=== PATIENT | male | born 1980 | race Caucasian/White ===

== ENCOUNTER → 2017-12-03 16:54 | Outpatient (CLI) | payer OTHER, SELFPAY ==
--- NOTE | 2017-12-03 16:56 | US_ITS ---
STUDY: SUPERFICIAL ULTRASOUND - LIMITED. REASON FOR EXAM: Male, 37 years old. Intermittent palpable abnormality left inguinal region. TECHNIQUE: A superficial ultrasound was performed with real-time and static bourgeois-scale imaging. COMPARISON: None. FINDINGS: Targeted ultrasound left inguinal region does not demonstrate a hernia with or without Valsalva. 2 lymph nodes are identified measuring 1.4 x 1.0 x 0.4 cm and 0.8 x 0.5 x 0.5 cm. US/Ext Non Vasc Limited/Soft Tiss IMPRESSION: No left inguinal hernia. Mildly enlarged left inguinal lymph node. If there is a high clinical suspicion of a left inguinal hernia consider correlation with CT. Electronically Signed: Epifanio Schulz MD at 2:37 EDT , Service support ,
== END ==
PROVIDERS: Family Provider Internal Medicine; PCP Internal Medicine; Referring Provider Internal Medicine; Visit Provider Internal Medicine
DX: R19.09 Other intra-abdominal and pelvic swelling, mass and lump (principal)
CPT/HCPCS: 76882

== ENCOUNTER → 2017-12-12 10:00 | Outpatient (CLI) | payer OTHER, SELFPAY ==
--- NOTE | 2017-12-12 10:00 | LIP_PTH ---
PATIENT: FRANSISCO ECHEVERRIA LOC: [facility] U#:[id number] AGE/SX: 44/M ROOM: RE12/12/[address]: Dr. Russel Mosher MD : 1980 BED: DIS: SPEC #: [id number] RECD: 12/12/17 10:25 STATUS: MARVIN SIRISHA #: [id number] GERMAN: 12/12/17 10:[address]: Russel Mosher DEPT: SURGICAL PATHOLOGY RECD BY: Yee Shah ENTERED: 12/12/17 12:06 SP TYPE: LIPOMA OTHR DR: Dr. Maciel Martinez MD Tissues: A - Soft tissues, NOS B - Soft tissues, NOS Procedures: Surgery Specimen Level III HEADER OPERATION: Excision of lipoma x2 on bilateral arms PRE-OP DIAGNOSIS: Lipomas TISSUE SUBMITTED: A - Right arm lipoma, B - Left arm lipoma MICROSCOPIC DIAGNOSIS A. Soft tissue lesion of right arm, excision: Mature adipose tissue consistent with lipoma. B. Soft tissue lesion of left arm, excision: Mature adipose tissue consistent with angiolipoma. AM:tameka 12/13/17 MICROSCOPIC DESCRIPTION Slides are reviewed. GROSS DESCRIPTION A - Received in fixative is one container labeled with the patient's name and designated right arm. The specimen consists of an irregular piece of adipose tissue measuring 1.5 x 0.8 x 0.4 cm. The external surface is inked. Sections reveal yellow adipose cut surfaces without areas of hemorrhage, necrosis or cystic degeneration. The specimen is bisected and submitted entirely in one cassette. B - Received in fixative is one container labeled with the patient's name and designated left arm. The specimen consists of an irregular piece of adipose tissue measuring 1.5 x 1 x 0.5 cm. The external surface is inked. Sections reveal yellow adipose cut surfaces without areas of hemorrhage, necrosis or cystic degeneration. The specimen is bisected and submitted entirely in one cassette. / SJ:tameka 12/12/17 TC:1 CPT: 76599 x2
== END ==
PROVIDERS: Family Provider Internal Medicine; PCP Internal Medicine; Referring Provider Surgery; Visit Provider Surgery
DX: D17.22 Benign lipomatous neoplasm of skin and subcutaneous tissue of left arm (principal); D17.21 Benign lipomatous neoplasm of skin and subcutaneous tissue of right arm
CPT/HCPCS: 88304

== ENCOUNTER → 2017-12-17 13:18 | Outpatient (CLI) | payer OTHER, SELFPAY ==
--- NOTE | 2017-12-17 13:19 | CT_ITS ---
STUDY: CT ABDOMEN AND PELVIS WITH CONTRAST REASON FOR EXAM: Male, 37 years old. Inguinal hernia RADIATION DOSAGE (If Supplied By Facility): CTDIvol = ( 15.26 ) mGy, DLP = ( 882.88 ) mGycm TECHNIQUE: Transaxial images were obtained from the dome of the diaphragm to the symphysis pubis without oral contrast. 100 ml of Isovue 300 contrast was administered. Sagittal and coronal images were reconstructed. Individualized dose optimization techniques were used for this CT. COMPARISON: Ultrasound dated 12/03/2017 FINDINGS: The visualized lung bases are clear. The visualized portions of the heart and pericardium are within normal limits. There are no calcified gallstones present. The liver is within normal limits. There are no suspicious hepatic lesions. The spleen is normal in size. The pancreas is within normal limits. The adrenal glands are within normal limits. There are no renal or ureteral stones. There is no hydronephrosis. There are no focal renal lesions. Normal visualized stomach. There is no bowel obstruction or inflammation. The appendix is visualized and appears normal. There is a small fat-containing left inguinal hernia. There is no bowel containing hernia. The aorta is normal in caliber. There is no abdominal or pelvic free air, free fluid, fluid collection or lymphadenopathy. There are no destructive osseous lesions. CT/Abdomen/Pelvis WITH Contrast IMPRESSION: Small fat-containing left inguinal hernia. No bowel containing hernia. No bowel obstruction or inflammation. Normal appendix. Electronically Signed: Fritz Hou, at 17:04 EST Tel , Service support ,
== END ==
PROVIDERS: Family Provider Internal Medicine; PCP Internal Medicine; Referring Provider Internal Medicine; Visit Provider Internal Medicine
DX: R10.30 Lower abdominal pain, unspecified (principal)
CPT/HCPCS: 74177; Q9967

== ENCOUNTER 2017-12-26 09:23 | Day surgery (SDC) | payer OTHER, SELFPAY ==
[2017-12-26 09:45] VITALS: BP 118/79; PULSE 63; RESP 16; TEMP 37.2; O2SAT 100; BMI 24.3
--- NOTE | 2017-12-26 11:00 | HERN_PTH ---
PATIENT: FRANSISCO ECHEVERRIA LOC: [facility] [place] U#:[id number] AGE/SX: 37/M ROOM: RE12/26/[address]: Dr. Russel Mosher MD : 1980 BED: DIS: 12/26/2017 SPEC #: [id number] RECD: 12/26/17 15:13 STATUS: MARVIN SIRISHA #: [id number] GERMAN: 12/26/17 11:[address]: Russel Mosher DEPT: SURGICAL PATHOLOGY RECD BY: Laverne Dick ENTERED: 12/26/17 15:30 SP TYPE: Hernia OTHR DR: Dr. Maciel Martinez MD Tissues: HERNIA Procedures: Surgery Specimen Level III HEADER OPERATION: Robotic left inguinal hernia repair PRE-OP DIAGNOSIS: Left inguinal hernia TISSUE SUBMITTED: Cord lipoma MICROSCOPIC DIAGNOSIS Cord lipoma: Mature adipose tissue, consistent with lipoma SJ:tameka 12/28/17 MICROSCOPIC DESCRIPTION Slides are reviewed. GROSS DESCRIPTION Received in fixative is one container labeled with the patient's name and designated cord lipoma. The specimen consists of multiple pieces of yellow adipose tissue that in aggregate measure 5.5 x 5 x 1 cm. No mass lesion is identified. Sections reveal walker-yellow adipose cut surfaces without area of hemorrhage, necrosis of cystic degeneration. Contracts Law Professor sections are submitted in one cassette. / SJ:rg 12/26/17 TC:1 CPT: 40654
[2017-12-26 12:27] VITALS: BP 118/79; BP 149/77; PULSE 83; RESP 16; TEMP 36.3; O2SAT 100
[2017-12-26 12:44] VITALS: BP 118/79; BP 145/71; PULSE 72; RESP 16; O2SAT 100
--- NOTE | 2017-12-26 12:46 | PCM.OPRPT ---
Problem List (1) Left inguinal hernia Status: Acute Report of Operation Date of Procedure: 12/26/17 Pre-Operative Diagnosis: Left inguinal hernia. Post-Operative Diagnosis: Same Surgery/Procedure Performed:: Robotic assisted laparoscopic left inguinal hernia repair with mesh Specimen's removed: Left inguinal lipoma Description of Procedure: The patient was brought back to the operating room and general anesthesia was induced. The abdomen was prepped and draped in usual sterile fashion. Incision was made just superior to the umbilicus and deepened to the fascia. A Veress needle was placed in the abdomen and the abdomen was insufflated to 15 mmHg after a successful drop test. Next the Veress needle was removed and a camera port was placed in the abdomen and the camera was placed in the abdomen and the abdomen was inspected for injuries upon entry and there were none. Next the inguinal canals were inspected. The right inguinal canal appeared normal with no hernia. The left had an indirect hernia. Next 8 mm ports were placed in the right and left lateral sidewalls and the robot was docked. The patient was placed in steep Trendelenburg position. The peritoneum in the left inguinal region was retracted posteriorly and scored with electrocautery scissors. The peritoneum was then dissected free all the way down to the hernia sac and the hernia sac was reduced including a very large lipoma of the cord. The lipoma was dissected free from the peritoneum and cord and sent for pathology. Next the pro-teacher of the hearing impaired mesh was placed into the left inguinal area and trimmed. This was unfolded and sat nicely over the hernia. The peritoneum was then reapproximated using 3-0V lock suture. The peritoneum fully covered the mesh at the end of the case. The instruments were removed and the ports were removed under direct visualization. The air was allowed to escape the abdomen. The incisions were anesthetized with Marcaine. The incisions were closed with interrupted 4-0 Monocryl sutures as well as Steri-Strips and bandages. The testicles were checked at the end of the case and both were present in scrotum. The patient was taken to PACU in stable condition and tolerated the procedure well. Grafts/Implants Used: Pro-teacher of the hearing impaired mesh - Admit VTE Documentation VTE Mechan Device Prophylaxis: SCD's
--- NOTE | 2017-12-26 12:51 | OP.PCM_ITS ---
Problem List (1) Left inguinal hernia Status: Acute Report of Operation Date of Procedure: 12/26/17 Pre-Operative Diagnosis: Left inguinal hernia. Post-Operative Diagnosis: Same Surgery/Procedure Performed:: Robotic assisted laparoscopic left inguinal hernia repair with mesh Specimen's removed: Left inguinal lipoma Description of Procedure: The patient was brought back to the operating room and general anesthesia was induced. The abdomen was prepped and draped in usual sterile fashion. Incision was made just superior to the umbilicus and deepened to the fascia. A Veress needle was placed in the abdomen and the abdomen was insufflated to 15 mmHg after a successful drop test. Next the Veress needle was removed and a camera port was placed in the abdomen and the camera was placed in the abdomen and the abdomen was inspected for injuries upon entry and there were none. Next the inguinal canals were inspected. The right inguinal canal appeared normal with no hernia. The left had an indirect hernia. Next 8 mm ports were placed in the right and left lateral sidewalls and the robot was docked. The patient was placed in steep Trendelenburg position. The peritoneum in the left inguinal region was retracted posteriorly and scored with electrocautery scissors. The peritoneum was then dissected free all the way down to the hernia sac and the hernia sac was reduced including a very large lipoma of the cord. The lipoma was dissected free from the peritoneum and cord and sent for pathology. Next the pro-deburrer mesh was placed into the left inguinal area and trimmed. This was unfolded and sat nicely over the hernia. The peritoneum was then reapproximated using 3-0V lock suture. The peritoneum fully covered the mesh at the end of the case. The instruments were removed and the ports were removed under direct visualization. The air was allowed to escape the abdomen. The incisions were anesthetized with Marcaine. The incisions were closed with interrupted 4-0 Monocryl sutures as well as Steri-Strips and bandages. The testicles were checked at the end of the case and both were present in scrotum. The patient was taken to PACU in stable condition and tolerated the procedure well. Grafts/Implants Used: Pro-deburrer mesh - Admit VTE Documentation VTE Mechan Device Prophylaxis: SCD's
--- NOTE | 2017-12-26 12:52 | DCINST_ITS ---
Discharge Diet: Light diet - advance as tolerated Discharge Activity: Return to Normal Activity, May Not Drive - for 2-3 days or while taking narcotic pain meds., May Shower - with the bandage in place 1-2 days after surgery. Lifting Restrictions: 20 pounds until released Additional Activity Instructions:: Climbing stairs is fine, walking is encouraged. Sitting in bed may be uncomfortable. Sitting up using your lateral muscles (sitting up sideways) is usually more comfortable. Do not drive, work heavy equipment of sign legal documents for 24 hours. If your hernia repair was an ingunial repair, you may have scrotal swelling, an ice pack and/or athletic support can provide more comfort. Pain medications may cause nausea, you should typically eat light foods as you take your pain medications. Pain medications may also cause constipation. If you have difficulty with this, discuss with your doctor. Call your doctor if your incision/area has: Continuous Slow Oozing, Sudden Increased Bleeding, Increased Pain/ Swelling, Increased Redness, Foul Smelling Discharge Call your doctor if you observe: Fever of 101 or Higher Suture Line Care: Avoid Pulling/Pushing, Avoid Pinching/Bending Change Dressing in (Days):: 2 - Leave steri-strips for 1 week. May protect with a guaze bandaid. Cleanse incision/area with: Keep Dressing Clean & Dry Allergies/Adverse Reactions: Allergies Penicillins Allergy (Verified 12/21/17 14:31) Rash Medications to take at Discharge Oxycodone HCl/Acetaminophen [Percocet 5/325] 1 tablet PO Q4H PRN PRN 7 Days #10 tablet 12/26/17 The following prescriptions were given: Oxycodone HCl/Acetaminophen [Percocet 5/325] 1 tablet PO Q4H PRN PRN 7 Days #10 tablet PRN Reason: Pain Primary Care Physician: Maciel Martinez MD [Primary Care Provider] - Test Results: Test results from this visit will be discussed in further detail at your follow- up appointment, if applicable. Please Follow Up With: Russel Mosher MD When: Please call to schedule 2 week follow up appointment. [phone]
[2017-12-26 13:00] VITALS: BP 118/79; BP 147/71; PULSE 66; RESP 16; O2SAT 100
[2017-12-26 13:12] VITALS: BP 118/79; BP 126/68; PULSE 64; RESP 16; TEMP 36.7; O2SAT 98
[2017-12-26 16:00] VITALS: BP 115/79; BP 118/79; PULSE 59; RESP 16; TEMP 36.7; O2SAT 100
== END 2017-12-26 16:00 | disposition other institution (70) ==
LOC: SDC 09:23 → AC 09:26
PROVIDERS: Family Provider Internal Medicine; PCP Internal Medicine; Referring Provider Surgery; Visit Provider Surgery
PROC: 0YQ64ZZ Repair Left Inguinal Region, Percutaneous Endoscopic Approach (ICD-10-PCS; CPT 49650; principal; 2017-12-26 10:40)
DX: K40.90 Unilateral inguinal hernia, without obstruction or gangrene, not specified as recurrent (principal); D17.6 Benign lipomatous neoplasm of spermatic cord
CPT/HCPCS: 00840; 49650; 88302; 88304; J7120; J2405

== ENCOUNTER → 2020-09-07 11:10 | Outpatient (CLI) | payer BC, SELFPAY ==
[2020-09-07 10:38] VITALS: BMI 24.3
--- NOTE | 2020-09-07 11:36 | RAD_ITS ---
INDICATION: NECK PAIN EXAMINATION/TECHNIQUE: X-RAY - XR Spine Cervical 2 or 3 Views COMPARISON: None. FINDINGS: Services cervical spine 3 projections shows all the cervical vertebral bodies pedicles lamina and spinous processes to be intact and in good position and alignment. The cervical soft tissues appear to be normal. RAD/Cerv Spine 2 or 3 Views IMPRESSION: Normal cervical spine.. Electronically Signed: Miguel Gonzales DO at 13:45 EDT Tel , Service support ,
[2020-09-07 12:05] LABS: Absolute Lymphocyte Count 1.42 X10^3/uL (0.83-4.51); Absolute Neutrophil Count 3.1 X10^3/uL (2.0-7.7); Basophil# 0.02 X10^3/uL; Basophil% 0.4 % (0-1); Eosinophil# 0.09 X10^3/uL; Eosinophils% 1.8 % (0-5); Hemoglobin 14.3 g/dL (13.0-16.5); Lymphocyte # 1.42 X10^3/ul (0.83-4.51); Lymphocyte % 28.7 % (19-41); Mean Corp Hgb Conc 33.3 g/dL (32-36); Mean Corpuscular Hgb 28.5 pg (27.0-32.0); Mean Corpuscular Volume 85.7 fL (80-94); Mean Platelet Vol. 10.1 fl (6.2-12.0); Monocyte# 0.32 X10^3/uL; Monocyte% 6.5 % (0-10); NRBC Flagged by Analyzer 0 % (0-5); Neutrophil # 3.05 X10^3/uL (2.7-7.7); Neutrophil % 61.8 % (47-70); Platelet Count 280 K/mm3 (150-450); RBC Distribution Width CV 12.4 % (11.6-14.6); RBC Distribution Width SD 38.5 fl (35.1-43.9); Red Blood Count 5.02 M/mm3 (4.6-6.2); White Blood Count 4.9 K/mm3 (4.4-11.0)
[2020-09-07 12:30] LABS: Cholesterol 187 mg/dL (200); High Density Lipoprotein 44 mg/dL; Triglycerides 73 mg/dL; Very Low Density Lipoprotein 15 mg/dL (5-40)
[2020-09-07 14:29] LABS: ALB/GLOB Ratio 1.5 RATIO (0.9-2.4); AST(SGOT) 16 U/L (15-37); Alanine Aminotransfer ALT/SGPT 33 U/L (16-61); Albumin, Serum 4.3 g/dL (3.2-5.0); Alkaline Phosphatase 100 U/L (45-117); Anion Gap 5 (5-15); BUN 12 mg/dL (7-18); Chloride 106 mmol/L (98-107); EST Glomerular Filtration Rate 88 mL/min (>60); Est Glom Filt Rate - Afr Amer 107 mL/min (>60); Globulin 2.8 g/dL (2.2-4.2); Glucose 90 mg/dL (74-106); Potassium 4.3 mmol/L (3.5-5.1); Protein, Total 7.1 g/dL (6.4-8.2); Sodium Level 141 mmol/L (136-145)
== END ==
PROVIDERS: PCP Internal Medicine; Referring Provider Internal Medicine; Visit Provider Internal Medicine
DX: M54.12 Radiculopathy, cervical region (principal); R03.0 Elevated blood-pressure reading, without diagnosis of hypertension
CPT/HCPCS: 36415; 72040; 80053; 80061; 82784; 83516; 85025; 86255

== ENCOUNTER 2020-10-08 08:00 | Outpatient (RCR) | payer BC, SELFPAY ==
[2020-09-07 10:38] VITALS: BMI 24.3
--- NOTE | 2020-09-16 16:06 | HP.PTEVAL ---
Patient's Visit Information FRANSISCO ECHEVERRIA is a 39 year old M referred to Physical Therapy by Dr. Maciel Martinez MD with a diagnosis of Cervicalgia. Date of Evaluation: 09/16/20 Physical Therapist: Mitul Samuels, PT, ATC - Visit Plan Frequency: 2x /Week Duration: 2-4 Weeks Plan: nas retraction ex's, postural education, DTR, mobs's, and HEP - Subjective Pt reports cervical spine pain for greater than a year. Pt notes he put it off until recently when he began to notice tingling going down his L UE all the way to the fingers. Pt reports he has recently had massage and medical care evaluation specialist with no relief. Pt denies PMHx of this complication. Pt reports he has significant sleep difficulty secondary to pain. Pt notes he is limited from many of his IADL's secondary to the pain and tingling in his L UE. Pt reports he has had an xray of his neck which revealed no significant findings. Pt reports he notices the tingling in his arm when he looks downward for a period of time. 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 Pt is R hand dominant. 3/10 pain at rest, 8/10 pain at worst. - Pain neck pain Pain Intensity (Out of 10): 3 Pain Intensity Range: 8 - Objective Neuro: B UE sensation is WNL to light touch. B bicepital reflex= 2/3. ROM: Pt is severely limited with retraction, moderately limited with R rotation and L SB, and minimally limited in all other planes. MMT: B UE's are grossly 5/5 throughout. Repeated movements: RPIS 10 x 2 peripheralized sx's into L shoulder . RRIS 10x2 increased neck pain and peripheralized into interscap region. Special tests: Negative cervical compression and distraction tests - Balance/Special Test Scores Oswestry Neck Score: 13 - Goals Goal 1:: Decrease c/s pain x 50% to aid with sleep Goal Time Frame: 2-4 Weeks Goal 2:: Decrease the frequency and intensity of L UE radiculpathy x 50% to aid with IADL's Goal Time Frame: 2-4 Weeks Goal 3:: I with HEP Goal Time Frame: 2-4 Weeks - Rehabilitation Potential Physical Therapy Diagnosis: Pt has neck pain, limited ROM in c/s, and L UE radiculopathy secondary to c/s disc derrangement Rehabilitation Potential: Good - Anticipated Interventions Patient/Client Instruction: Educate patient on: Condition, Plan of Care For the Purpose of:: To improve self management Therapeutic Exercise to Include: Body mechanics, Postural training, Flexibilty training, Active ROM For the Purpose of:: To decrease pain, To increase ROM, To improve muscle performance and motor function Manual Therapy Techniques to Include: Passive ROM, Soft tissue mobilization For the Purpose of:: To decrease pain Thank you for the opportunity to evaluate your patient. For Medicare and Medicare HMO plans, please review the plan of care and approve it. It will need to be FAXED BACK to us at [phone] for Medicare purposes. For Medicare only, by signing this I certify the plan of care. Please let me know if there are questions or concerns regarding this plan of care. Physician Signature: Date:
--- NOTE | 2020-12-22 12:34 | HP.PT.NRP ---
FRANSISCO ECHEVERRIA was seen in my office for initial evaluation on 09/16/20. The following Plan of Care was established for this patient: Initial Frequency: 2x /Week Initial Duration: 2-4 Weeks Patient/Client Instruction: Educate patient on: Condition, Plan of Care For the Purpose of:: To improve self management Therapeutic Exercise to Include: Body mechanics, Postural training, Flexibilty training, Active ROM For the Purpose of:: To decrease pain, To increase ROM, To improve muscle performance and motor function Manual Therapy Techniques to Include: Passive ROM, Soft tissue mobilization For the Purpose of:: To decrease pain This patient was last seen in our office 10/08/20. Pertinent comments regarding their Physical therapy will appear below: This patient has not returned to Physical Therapy and is appropriate to return to MD for further follow-up as needed. At this point I will be discontinuing this patient from physical therapy. I would be happy to see this patient again in the future if found appropriate by the physician. Thank you! Corinna Cotton, PT, Cert MDT Balance/Gait/Functional tests - Balance/Special Test Scores Oswestry Neck Score: 13
== END 2020-10-08 19:00 | disposition home or self-care (01) ==
LOC: PT 08:00
PROVIDERS: PCP Internal Medicine; Referring Provider Internal Medicine; Visit Provider Internal Medicine
DX: M54.12 Radiculopathy, cervical region (principal); G89.29 Other chronic pain
CPT/HCPCS: 97012; 97014; 97035; 97110; 97161; 97530; G0283

== ENCOUNTER → 2020-10-29 15:23 | Outpatient (CLI) | payer BC, SELFPAY ==
--- NOTE | 2020-10-29 15:35 | MRI_ITS ---
STUDY: MRI CERVICAL SPINE WITHOUT CONTRAST REASON FOR EXAM: Male, 39 years old. Cervical radiculopathy TECHNIQUE: Standardized fat and water weighted pulse sequences were obtained in the sagittal and axial planes. COMPARISON: None FINDINGS: Normal foramen magnum and brainstem-cervical cord junction. Normal craniovertebral junction. Normal anterior atlantoaxial articulation. Normal odontoid process. There is straightening of the normal cervical lordosis. Normal vertebral bodies and posterior osseous elements. C2-3: Normal endplates. Normal disc height, signal and morphology. Normal central canal and intervertebral neural foramina. C3-4: Normal endplates. Normal disc height, signal and morphology. Normal central canal and intervertebral neural foramina. C4-5: Arthrosis of the left facet joint with some fluid and stress reaction of the adjacent articular processes. C5-6: Normal endplates. Normal disc height, signal and morphology. Normal central canal and intervertebral neural foramina. C6-7: Normal endplates. Normal disc height, signal and morphology. Normal central canal and intervertebral neural foramina. C7-T1: Normal endplates. Normal disc height, signal and morphology. Normal central canal and intervertebral neural foramina. Normal cervical cord. Normal visualized soft tissue structures. MRI/Spine Cervical (Routine) IMPRESSION: 1. Arthrosis and surrounding stress reaction of the left facet joint at C4/C5. 2. Straightening of the normal lordotic curvature. 3. No spinal stenosis or neural foraminal stenosis. Electronically Signed: Cassius Perez MD at 16:49 EDT Tel , Service support ,
== END ==
PROVIDERS: PCP Internal Medicine; Visit Provider Internal Medicine
DX: M54.12 Radiculopathy, cervical region (principal)
CPT/HCPCS: 72141

== ENCOUNTER 2021-04-07 15:19 | Outpatient (CLI) | payer BC, SELFPAY ==
[2021-04-07 17:07] LABS: Absolute Lymphocyte Count 1.64 X10^3/uL (0.83-4.51); Absolute Neutrophil Count 3.1 X10^3/uL (2.0-7.7); Basophil# 0.02 X10^3/uL; Basophil% 0.4 % (0-1); Eosinophil# 0.21 X10^3/uL; Eosinophils% 3.9 % (0-5); Hematocrit 43.6 % (40-54); Hemoglobin 15.1 g/dL (13.0-16.5); Lymphocyte # 1.64 X10^3/ul (0.83-4.51); Lymphocyte % 30.4 % (19-41); Mean Corp Hgb Conc 34.6 g/dL (32-36); Mean Corpuscular Hgb 29.9 pg (27.0-32.0); Mean Corpuscular Volume 86.3 fL (80-94); Mean Platelet Vol. 10.8 fl (6.2-12.0); Monocyte# 0.43 X10^3/uL; NRBC Flagged by Analyzer 0 % (0-5); Neutrophil # 3.08 X10^3/uL (2.7-7.7); Neutrophil % 56.9 % (47-70); Platelet Count 248 K/mm3 (150-450); RBC Distribution Width CV 12.2 % (11.6-14.6); RBC Distribution Width SD 38.6 fl (35.1-43.9); Red Blood Count 5.05 M/mm3 (4.6-6.2); White Blood Count 5.4 K/mm3 (4.4-11.0)
[2021-04-07 17:08] LABS: ALB/GLOB Ratio 1.1 RATIO (0.9-2.4); AST(SGOT) 23 U/L (15-37); Alanine Aminotransfer ALT/SGPT 46 U/L (16-61); Alkaline Phosphatase 99 U/L (45-117); Anion Gap 5 (5-15); BUN 16 mg/dL (7-18); BUN/Creat Ratio 14.2 RATIO (10-20); Calcium,Total 8.9 mg/dL (8.5-10.1); Chloride 104 mmol/L (98-107); Creatinine, Serum 1.13 mg/dL (0.70-1.30); EST Glomerular Filtration Rate 76 mL/min (>60); Est Glom Filt Rate - Afr Amer 92 mL/min (>60); Globulin 3.5 g/dL (2.2-4.2); Glucose 97 mg/dL (74-106); Potassium 3.6 mmol/L (3.5-5.1); Protein, Total 7.5 g/dL (6.4-8.2); Sodium Level 140 mmol/L (136-145)
== END 2021-04-07 23:59 | disposition home or self-care (01) ==
LOC: BIMLAB 15:20
PROVIDERS: PCP Internal Medicine; Referring Provider Internal Medicine; Visit Provider Internal Medicine
DX: L30.9 Dermatitis, unspecified (principal); L29.9 Pruritus, unspecified
CPT/HCPCS: 36415; 80053; 85025

== ENCOUNTER 2023-01-30 19:23 | Emergency (ER) | payer BC, SELFPAY ==
[2023-01-30 19:24] VITALS: BP 134/84; PULSE 97; RESP 16; TEMP 36.6; O2SAT 97; BMI 25.7
--- NOTE | 2023-01-30 19:30 | RAD_ITS ---
INDICATION: injury EXAMINATION/TECHNIQUE: X-RAY - RIGHT XR Ankle Min 3 Views 3 VIEWS COMPARISON: FINDINGS: Avulsion fractures of the lateral calcaneus and possibly cuboid bone. Suspect nondisplaced avulsion fracture of the dorsal talus seen on the lateral view. Ankle joint effusion. Normal alignment. Marked lateral soft tissue swelling. Mild anterior soft tissue swelling. No radiopaque foreign body or soft tissue gas. RAD/Ankle min 3 Views IMPRESSION: Acute avulsion of the lateral calcaneus and possibly cuboid bone. Suspected nondisplaced avulsion of the dorsal talus. Large ankle joint effusion. Electronically Signed: Diann Lobo MD at 19:53 EST Reading Location ID and State: [id number] / Tel , Service support ,
--- NOTE | 2023-01-30 20:19 | ED.VIS.LOWEX ---
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 Prior history of same several months ago. No prior ankle surgery. No other injuries. Chief Complaint: Lower Extremity Injury Informant: patient and spouse/S.O. 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 Immediate pain on the lateral aspect. No prior history or surgery except he did have an ankle injury months ago. Prior similar symptoms: Yes Recent Illness/Hospitalization: No PFSH PFSH Medical History Cervical radiculopathy Chronic neck pain Dermatitis Elevated blood pressure reading No pertinent past medical history Pruritus Home Medications famotidine 20 mg tablet 20 mg PO BID #60 tabs 04/07/21 [Rx Last Taken Unknown] cetirizine 10 mg capsule (Zyrtec) 10 mg PO DAILY PRN 04/20/21 [History Last Taken Unknown] Allergy/AdvReac Type Severity Reaction Status Date / Time Penicillins Allergy Rash Verified 01/30/23 19:24 Family History Father Cancer pancreatic, and testicular Heart disease Hypertension Hyperlipemia Diabetes Grandfather Myocardial infarction Grandmother Myocardial infarction Surgical History H/O vasectomy History of hernia repair (~12/2017) History of shoulder surgery Social History Smoking Status: Never smoker alcohol intake: current alcohol intake frequency: holidays/special occasions only substance use type: does not use what type of physical activity do you participate in: other details: basketball frequency: 1-2 times per week ROS ROS ED ROS Narrative No recent illness. Review of Systems ROS Unobtainable: Denies due to encephalopathy Constitutional Constitutional ED: Denies chills or fever(s) Eyes Eyes: Denies blurry vision ENT ENT ED: Denies ear pain Cardiovascular Cardiovascular: Denies chest pain or palpitations Respiratory/Chest Respiratory/Chest: Denies cough or dyspnea Gastrointestinal Gastrointestinal: Denies abdominal pain Genitourinary Genitourinary ED: Denies dysuria or hematuria Musculoskeletal Musculoskeletal: Denies arthralgias Integumentary Denies abscess Neurologic Neurologic: Denies headache(s) Psychiatric Psychiatric: Denies anxiety or depression Endocrine Endocrinology: Denies polydipsia or polyphagia Hematologic/Lymphatic Hematologic/Lymphatic: Denies easy bleeding Allergic/Immunologic Allergic/Immunologic ED: Denies mouth swelling EXAM Physical Exam Narrative Exam Narrative: 42-year-old male no acute distress. Vital signs stable afebrile. HEENT exam unremarkable. Lungs clear. Heart regular rhythm. Abdomen soft nontender. Moving all 4 extremities. Neurovascular intact. Right ankle tenderness and swelling along the lateral malleolus. Medial malleolus nontender nonswollen. Normal dorsi plantarflexion. Achilles tendon intact. Normal DP pulse. Able to wiggle his toes. Normal touch sensation. No gross bony deformity. Otherwise exam unremarkable. Const Vital Signs: 01/30/23 19:24 Temperature 97.8 F Temperature Source Temporal Pulse Rate 97 Respiratory Rate 16 Blood Pressure 134/84 H Blood Pressure Mean 100 Pulse Ox 97 Positive well nourished and well developed; Negative for obese, cachectic, contractures or unkempt General Appearance ED: well developed and NAD; Negative for unkempt, cachectic or contractures Nutritional Appearance: Negative for cachectic or obese HEENT Reports moist mucous membranes normocephalic and atraumatic; Negative for trauma or tenderness Eyes PERRL General Eye ED: Negative for other Neck full ROM and supple Thyroid: Negative for tender Lymph Lymphatic: Negative for other Chest Wall inspection of chest normal and palpation of chest normal Chest: Negative for other Resp normal respiratory effort, no retractions and clear to auscultation bilaterally Effort and Inspection: Negative for pain with movement Auscultation: Negative for rales, rhonchi or wheezes Cardio regular rate, regular rhythm, S1 normal heart sound, S2 normal heart sound and no murmurs Rate: Negative for bradycardia or tachycardic Rhythm: Negative for abnormal rhythm Bruits: Negative for other GI non-tender, non-distended and no masses Inspection: Negative for abdominal distention Auscultation: normoactive bowel sounds Palpation: soft; Negative for tender, guarding or rebound tenderness present Extremity full ROM; Negative for normal to inspection Extremity Narrative: Right lateral malleolus tender. Swollen. Dorsi and plantarflexion tach. Normal DP pulse. Achilles tendon intact. General Extremety ED: Yes edema and weight-bearing difficulty; Negative for cyanosis General Extremity: edema and weight-bearing difficulty; Negative for cyanosis Neuro oriented x3, CN's II-XII intact bilaterally and moves all extremities Sensorium / Orientation: alert, oriented to person, oriented to place and oriented to time Motor Exam: strength 5/5 throughout Psych mental status grossly normal Appearance: Negative for unkempt Speech: No other Mood & Affect: Negative for anxious Skin no wounds Lesions: no lesions Rashes: no rashes Trauma: Negative for abrasion MDM MDM MDM Narrative Medical decision making narrative: 42-year-old male ankle sprain with avulsion fractures of the cuboid and talus. Crutches which she already has. Walking boot. Ice and elevate. Follow-up with orthopedics if not improving for further evaluation. History & Record Review Discussion w/independent historian: Patient Radiography Diagnostic Testing: Clinical Impression(s) from Imaging Studies Ankle X-Ray 01/30/23 19:30 IMPRESSION: Acute avulsion of the lateral calcaneus and possibly cuboid bone. Suspected nondisplaced avulsion of the dorsal talus. Large ankle joint effusion. Electronically Signed: Diann Lobo MD at 19:53 EST , Right ankle x-ray, 3 views, interpreted by myself and the radiologist. Shows soft tissue swelling right lateral malleolus. Avulsion of the cuboid. Avulsion of the talus. These could be old or they could be acute. No old films available for comparison. I did go over the films with the patient and his . Discharge Plan Triage Chief Complaint: Lower Extremity Injury ED Provider: Johnathon Mckeon Dx/Rx/DC Orders Clinical Impression: Ankle sprain, Avulsion fracture of right ankle Instructions: ED Ankle Sprain (Adult) Prescriptions: No Action famotidine 20 mg tablet 20 mg PO BID Qty: 60 1RF Zyrtec 10 mg capsule 10 mg PO DAILY PRN Primary Care Provider: Maciel Martinez Referrals: Maciel Martinez MD [Primary Care Provider] - Hussein Del Rio DO [Med Staff - Active Staff] - 10-14 Days if not better Activity Restrictions/Additional Instructions: You have a bad ankle sprain. There is also some avulsion fractures of the cuboid and talus bones which may have occurred this time or the last time he sprained it really bad. Ice and elevate. Motrin and Tylenol for pain. No weightbearing until pain improving. Walking boot once the pain improves. Follow-up with orthopedics if not improving sometimes there can be a torn tendon or ligament that would need further evaluation with MRI. Disposition Disposition: Home, Self Care
== END 2023-01-30 20:35 | disposition home or self-care (01) ==
LOC: ED 20:28
PROVIDERS: Emergency Provider Emergency Medicine; PCP Internal Medicine; Visit Provider Emergency Medicine
DX: S93.401A Sprain of unspecified ligament of right ankle, initial encounter (principal); S82.891A Other fracture of right lower leg, initial encounter for closed fracture; X58.XXXA Exposure to other specified factors, initial encounter
CPT/HCPCS: 73610; 99283